=== PATIENT | female | born 1980 | race Caucasian/White ===

== ENCOUNTER → 2016-06-23 | Outpatient (CLI) | payer BC, OTHER ==
[~2016-06-23] MED LIST: PRENTAB26 PO
[2016-06-23 19:11] LABS: PREG INTERNAL NEGATIVE QC NEG CLEAR BACKGROUND; PREG INTERNAL POSITIVE QC POS CONTROL LINE
== END | disposition home or self-care (01) ==
LOC: C.LAB 18:14
PROVIDERS: ATTEND Obstetrics & Gynecology
DX: N92.6 Irregular menstruation, unspecified (principal)

== ENCOUNTER → 2016-07-28 | Outpatient (CLI) | payer BC | END | disposition home or self-care (01) | LOC: C.LAB1850 12:27 | PROVIDERS: ATTEND Obstetrics & Gynecology | DX: O09.299 Supervision of pregnancy with other poor reproductive or obstetric history, unspecified trimester (principal); O09.00 Supervision of pregnancy with history of infertility, unspecified trimester; Z3A.00 Weeks of gestation of pregnancy not specified ==

== ENCOUNTER → 2016-08-22 | Outpatient (CLI) | payer BC ==
[2016-08-22 14:49] LABS: MANUAL MICROSCOPIC REQUIRED? NO; REVIEW REQ? NO; URINE APPEARANCE CLEAR (CLEAR); URINE BILIRUBIN NEG (NEG); URINE COLOR YELLOW; URINE NITRITE NEG (NEG); URINE PH 8.5 (4.5-7.5); URINE SPECIFIC GRAVITY 1.006 (1.000-1.030); UROBILINOGEN NEG (NEG)
== END | disposition home or self-care (01) ==
LOC: C.LABSPEC 13:53
PROVIDERS: ATTEND Obstetrics & Gynecology
DX: O09.519 Supervision of elderly primigravida, unspecified trimester (principal)

== ENCOUNTER → 2016-08-29 | Outpatient (CLI) | payer BC ==
[2016-09-01 11:23] LABS: CHLAMYDIA TRACH RNA*** NOT DETECTED (NOT DETECTED); GC (NEIS GONORRHOEAE)RNA** NOT DETECTED (NOT DETECTED)
== END | disposition home or self-care (01) ==
LOC: C.LABSPEC 15:25
PROVIDERS: ATTEND Obstetrics & Gynecology
DX: O09.519 Supervision of elderly primigravida, unspecified trimester (principal); Z3A.00 Weeks of gestation of pregnancy not specified

== ENCOUNTER → 2016-08-29 | Outpatient (CLI) | payer BC | END | disposition home or self-care (01) | LOC: C.PAPS 08:03 | PROVIDERS: ATTEND Obstetrics & Gynecology | DX: Z01.419 Encounter for gynecological examination (general) (routine) without abnormal findings (principal); O09.519 Supervision of elderly primigravida, unspecified trimester; Z3A.00 Weeks of gestation of pregnancy not specified ==

== ENCOUNTER → 2016-10-16 | Outpatient (CLI) | payer BC ==
[2016-10-16 19:58] LABS: GTGD 50 Grams
== END | disposition home or self-care (01) ==
LOC: C.LAB 17:27
PROVIDERS: ATTEND Obstetrics & Gynecology
DX: O09.512 Supervision of elderly primigravida, second trimester (principal)

== ENCOUNTER → 2016-11-24 | Outpatient (CLI) | payer BC ==
--- NOTE | 2016-11-24 15:42 | DIAGNOSTIC IMAGING REPORT ---
BILATERAL LOWER EXTREMITY VENOUS DOPPLER HISTORY: LEG SWELLING IN 2ND TRIMESTER COMPARISON STUDY: None. FINDINGS: There is normal compressibility, flow, and augmentation within the bilateral lower extremity deep venous systems. IMPRESSION: No DVT within the right or left lower extremity. Electronically signed by: Ken Yoder M.D. 11/24/2016 3:41 PM Dictated Date/Time: 11/24/2016 3:41 PM
== END | disposition home or self-care (01) ==
LOC: C.ULTR 15:10
PROVIDERS: ATTEND Student in an Organized Health Care Education/Training Program
DX: O12.02 Gestational edema, second trimester (principal)

== ENCOUNTER → 2017-01-09 | Outpatient (CLI) | payer BC ==
[2017-01-09 10:45] LABS: HEMATOCRIT 34.3 % (37-47)
[2017-01-09 11:28] LABS: MANUAL MICROSCOPIC REQUIRED? NO; REVIEW REQ? NO; URINE APPEARANCE CLEAR (CLEAR); URINE BILIRUBIN NEG (NEG); URINE COLOR YELLOW; URINE EPITHELIAL CELL AUTO >30 /lpf (0-5); URINE NITRITE NEG (NEG); URINE PH 8.5 (4.5-7.5); URINE SPECIFIC GRAVITY 1.013 (1.000-1.030); UROBILINOGEN NEG (NEG)
[2017-01-09 11:47] LABS: GTGD 50 Grams
== END | disposition home or self-care (01) ==
LOC: C.LAB1850 09:32
PROVIDERS: ATTEND Obstetrics & Gynecology
DX: O09.512 Supervision of elderly primigravida, second trimester (principal); Z3A.00 Weeks of gestation of pregnancy not specified

== ENCOUNTER → 2017-03-06 | Outpatient (CLI) | payer BC | END | disposition home or self-care (01) | LOC: C.LABSPEC 15:47 | PROVIDERS: ATTEND Obstetrics & Gynecology | DX: O09.513 Supervision of elderly primigravida, third trimester (principal) ==

== ENCOUNTER 2017-03-27 17:16 | Inpatient (IN) | payer BC ==
[~2017-03-27] VITALS: Ht 157.5 cm; Wt 82.7 kg
[2017-03-27 20:01] VITALS: BMI 33.3
[2017-03-27] MEDS ORDERED: LACTATED RINGER'S 1000ML 1,000 ML IV PRN (20:52)
[2017-03-27] MEDS ORDERED: LACTATED RINGER'S 1000ML 500 ML IV PRN (20:53)
[2017-03-27] MEDS ORDERED: OXYTOCIN 30 UNITS/500ML NSS IV PRN (21:00)
[2017-03-27 21:26] LABS: HEMATOCRIT 38.6 % (37-47); MEAN CELL VOLUME 94.6 fL (80-100); MEAN CORPUSCULAR HEMOGLOBIN 32.4 pg (25-34); MEAN CORPUSCULAR HGB CONC 34.2 g/dl (32-36); MEAN PLATELET VOLUME 11.1 fL (7.4-10.4); PLATELET COUNT 269 K/uL (130-400); RED BLOOD COUNT 4.08 M/uL (4.2-5.4); WHITE BLOOD COUNT 15.19 K/uL (4.8-10.8)
[2017-03-27] MEDS: LACTATED RINGER'S 1000ML 1,000 ML IV SCH (21:50)
[2017-03-27 22:24] VITALS: Ht 157.5 cm; Wt 82.7 kg
[2017-03-28] MEDS ORDERED: NURSING VERBAL MED ORDER ONE ×2 (00:30→02:45)
[2017-03-28] MEDS: RANITIDINE HCL 150 MG TAB PO SCH ×3 (00:50→19:18)
[2017-03-28] MEDS ORDERED: BUTORPHANOL TARTRATE 1 MG/ML VIAL ONE (03:06)
[2017-03-28] MEDS ORDERED: FENTANYL 2MCG/ML ROPIV 1.25MG/ML 100ML BAG EPI ONE (04:18)
[2017-03-28] MEDS ORDERED: EpHEDrine SULFATE INJ 50 MG/ML AMP ONE (04:18)
[2017-03-28] MEDS ORDERED: BUPIVACAINE 0.25% 30 ML VIAL ONE (04:18)
[2017-03-28] MEDS ORDERED: FENTANYL CITRATE INJ 50 MCG/1 ML 2 ML VIAL ONE (04:19)
[2017-03-28] MEDS: LACTATED RINGER'S 1000ML 1,000 ML IV SCH ×2 (04:30→08:45)
[2017-03-28] MEDS ORDERED: LACTATED RINGER'S 1000ML 500 ML IV PRN (05:52)
[2017-03-28] MEDS ORDERED: NALOXONE HCL INJ 1 MG in SODIUM CHLORIDE 0.9% 1000ML 1,000 ML IV PRN (05:52)
[2017-03-28] MEDS ORDERED: EpHEDrine SULFATE INJ 50 MG/ML AMP IV PRN (06:00)
[2017-03-28] MEDS ORDERED: NALBUPHINE HCL INJ 10 MG/ML AMP IV PRN (06:00)
[2017-03-28] MEDS ORDERED: PROMETHAZINE HCL INJ 6.25 MG in SODIUM CHLORIDE 0.9% 50ML 50 ML IV PRN (06:00)
[2017-03-28] MEDS ORDERED: FENTANYL 2MCG/ML ROPIV 1.25MG/ML 100ML BAG EPI PRN (06:00)
[2017-03-28] MEDS ORDERED: NALOXONE HCL INJ 0.4 MG/1 ML VIAL/CARP IV PRN (06:00)
[2017-03-28] MEDS ORDERED: DiphenhydrAMINE HCL 50 MG/ML VIAL IV PRN (06:00)
[2017-03-28] MEDS ORDERED: ONDANSETRON INJ 2 MG/ML 2 ML VIAL IV PRN (06:00)
[2017-03-28] MEDS ORDERED: HYDROCORTISONE ACETATE 25 MG SUPP PR PRN (15:30)
[2017-03-28] MEDS ORDERED: ACETAMINOPHEN/CODEINE 300/30MG TAB PO PRN ×2 (15:30)
[2017-03-28] MEDS ORDERED: SUPERCREAM 0.870 % 15GM JAR EXT PRN (15:30)
[2017-03-28] MEDS ORDERED: LANOLIN OINT EXT PRN ×2 (15:30)
[2017-03-28] MEDS ORDERED: ACETAMINOPHEN 325 MG TAB PO PRN (15:30)
[2017-03-28] MEDS ORDERED: OXYTOCIN 30 UNITS/500ML NSS IV PRN (15:30)
[2017-03-28] MEDS ORDERED: DIPHTHERIA/TETANUS/PERTUSSIS 0.5 ML SYR/VIAL IM. ONE (15:30)
[2017-03-28] MEDS ORDERED: OXYCODONE/ACETAMINOPHEN 5-325 TAB PO PRN (15:30)
[2017-03-28] MEDS ORDERED: BENZOCAINE 20% AER SPR 82.5 GM CAN EXT PRN (15:30)
--- NOTE | 2017-03-28 16:37 | Anesthesia Procedure Note ---
Anesthesia Epidural Removal Nt Date & Time Mar 28, 2017 at 16:36 Vital Signs Pain Intensity: 0.0 Notes Mental Status: alert / awake / arousable, participated in evaluation Nausea / Vomiting: adequately controlled Pain: adequately controlled Airway Patency, RR, SpO2: stable & adequate BP & HR: stable & adequate Hydration State: stable & adequate Neuraxial Anesthesia: was administered, sensory block is resolving Anesthetic Complications: no major complications apparent, pt satisfied with anesthetic care Epidural: removed without complications, with tip intact
--- NOTE | 2017-03-28 17:57 | DELIVERY SUMMARY ---
DATE OF OPERATION: 03/28/[address] Pinon at 8:30 a.m. The patient was approximately 8 cm, she reached fully dilated. She had an epidural, was strep negative and then had a heart rate category 1 tracing. After several hours of pushing, she delivered a baby in right occiput anterior position. There was a nuchal cord x3 and some thin meconium. I was unable to really see cord right away, so baby was delivered and then the cord was then tangled from the baby's neck. There was length in the cord to allow us. The baby was somewhat floppy at the start, so we clamped the cord and cut it and baby was attended to on the warmer. Cord gases obtained, cord blood obtained, cord collection done for cord donation as well. The patient had a second degree tear repair with 3-0 Vicryl. Placenta removed with gentle traction. IV Pitocin started. The estimated blood loss 300 mL. Sponge, needle and instrument counts correct. I attest to the content of the Intraoperative Record and any orders documented therein. Any exception s are noted below.
[2017-03-28 18:20] VITALS: BP 130/77; PULSE 113; TEMP 36.9
[2017-03-28] MEDS: IBUPROFEN 600 MG TAB PO PRN (18:43)
[2017-03-28 19:10] VITALS: BP 129/84; PULSE 105; TEMP 36.8
[2017-03-28] MEDS: DOCUSATE SODIUM 100 MG CAP PO SCH (19:18)
[2017-03-28 23:00] VITALS: BP 108/70; PULSE 82; TEMP 36.6
[2017-03-29 03:35] VITALS: BP 112/75; PULSE 88; TEMP 36.5
[2017-03-29 07:20] VITALS: BP 110/74; PULSE 90; TEMP 36.5
[2017-03-29 07:24] LABS: HEMATOCRIT 28.8 % (37-47)
[2017-03-29] MEDS: RANITIDINE HCL 150 MG TAB PO SCH ×2 (08:02→20:09)
[2017-03-29] MEDS: PRENATAL VITAMIN TAB PO SCH (08:02)
[2017-03-29] MEDS: DOCUSATE SODIUM 100 MG CAP PO SCH ×2 (08:02→20:09)
[2017-03-29] MEDS: IBUPROFEN 600 MG TAB PO PRN ×4 (08:03→20:12)
--- NOTE | 2017-03-29 08:57 | Progress Note ---
Subjective Mar 29, 2017. Subjective conversation w/ patient, physical exam, lab review Ambulation: ambulating normally Voiding: no voiding problems Diet Tolerance: Regular Diet Lochia: Moderate Feeding Type: Breast Feeding Objective Vital Signs Date Time Temp Pulse Resp B/P (MAP) Pulse Ox O2 Delivery O2 Flow Rate FiO2 03/29/17 08:15 Room Air 03/29/17 07:20 36.5 90 18 110/74 (86) Room Air 03/29/17 03:35 36.5 88 20 112/75 (87) Room Air 03/28/17 23:00 Room Air 03/28/17 23:00 36.6 82 20 108/70 (83) Room Air 03/28/17 19:10 36.8 105 20 129/84 (99) Room Air 03/28/17 19:10 Room Air 03/28/17 18:20 36.9 113 20 130/77 (94) Room Air Physical Exam General Appearance: WELL-APPEARING Respiratory/Chest: lungs clear Abdomen: non tender Fundus: Firm Extremities: non-tender Laboratory Results Last 24 Hours Test 03/29/17 06:51 Hemoglobin 9.4 g/dL Hematocrit 28.8 % Assessment and Plan Problem List Medical Problems: (1) Vaginal bleeding in Status: Acute Post- Day#: 1 Continue Routine Care: Discussed Fe
[2017-03-29 11:30] VITALS: BP 113/74; PULSE 81; TEMP 36.6; O2SAT 97
[2017-03-29 16:30] VITALS: BP 120/82; PULSE 88; TEMP 36.9; O2SAT 98
[2017-03-29] MEDS ORDERED: BISACODYL 5 MG TABEC PO SCH (20:00)
[2017-03-29 23:30] VITALS: BP 110/73; PULSE 89; TEMP 36.7
[2017-03-30] MEDS: IBUPROFEN 600 MG TAB PO PRN ×2 (04:07→07:59)
[2017-03-30 06:41] LABS: HEMATOCRIT 28.2 % (37-47); MEAN CELL VOLUME 95.6 fL (80-100); MEAN CORPUSCULAR HEMOGLOBIN 31.5 pg (25-34); PLATELET COUNT 190 K/uL (130-400); RED BLOOD COUNT 2.95 M/uL (4.2-5.4); WHITE BLOOD COUNT 19.03 K/uL (4.8-10.8)
[2017-03-30] MEDS ORDERED: BISACODYL 10 MG SUPP PR PRN (07:00)
--- NOTE | 2017-03-30 07:18 | Progress Note ---
Subjective Mar 30, 2017. Subjective conversation w/ patient (pt has questions about course of healing for stitches, care, and requests script for compression stockings.), conversation w/ family, physical exam, chart review, lab review Ambulation: ambulating normally Voiding: no voiding problems Passing Gas: Yes Diet Tolerance: Regular Diet Lochia: Moderate Feeding Type: Breast Feeding Pain: CONTROLLED Review of Systems Respiratory: No shortness of breath Abdomen: No vomiting Female : No dysuria Objective Vital Signs Date Time Temp Pulse Resp B/P (MAP) Pulse Ox O2 Delivery O2 Flow Rate FiO2 03/29/17 23:30 36.7 89 20 110/73 (85) Room Air 03/29/17 23:30 Room Air 03/29/17 16:30 36.9 88 20 120/82 (95) 98 Room Air 03/29/17 16:30 Room Air 03/29/17 11:30 36.6 81 18 113/74 (87) 97 Room Air 03/29/17 08:15 Room Air 03/29/17 07:20 36.5 90 18 110/74 (86) Room Air Physical Exam General Appearance: WELL-APPEARING, WD/WN, NO APPARENT DISTRESS Respiratory/Chest: lungs clear, normal breath sounds, no respiratory distress Cardiovascular: regular rate, rhythm, no gallop Abdomen: normal bowel sounds, soft Fundus: Firm, Non-Tender, Relation to Umbilicus (2 below U) Extremities: non-tender, normal inspection Laboratory Results Last 24 Hours Test 03/30/17 06:05 White Blood Count 19.03 K/uL Red Blood Count 2.95 M/uL Hemoglobin 9.3 g/dL Hematocrit 28.2 % Mean Corpuscular Volume 95.6 fL Mean Corpuscular Hemoglobin 31.5 pg Mean Corpuscular Hemoglobin Concent 33.0 g/dl RDW Standard Deviation 47.7 fL RDW Coefficient of Variation 13.7 % Platelet Count 190 K/uL Mean Platelet Volume 11.0 fL Assessment and Plan Post- Day#: 2 Continue Routine Care: 37 yof (now1) 03/28 1456 O-/GBS-/RI Hgb 13.2, 9.4, today pending Pt doing well clinically. Denies s/s anemia. Desires to go home today, counselled on dc instructions. Will send with script for stockings. MARCUS MENDOZA FMR PGY 1 Resident Physician Supervision Note: I interviewed and examined the patient. Discussed with Dr. Mendoza and agree with findings and plan as documented in the note. Any exceptions or clarifications are listed here: [None] Documented By: Jose Quevedo Resident Tracking Resident Involvement: Resident Care Provided Care Provided: OB Delivery
[2017-03-30] MEDS ORDERED: [UNRECOGNIZED DRUG - CODE] (07:19)
--- NOTE | 2017-03-30 07:20 | Discharge Instructions ---
Discharge Instructions Date of Service Mar 30, 2017. Admission Reason for Admission: Prolonged Monitoring, R/O Ruptured Membranes Discharge Discharge Diagnosis / Problem: Spontaneous Vaginal Delivery Discharge Goals Goal(s): Routine recovery after delivery Medications Continue Dispensed Medications: supercream, dermaplast, tucks, lansinoh Activity Recommendations Activity Limitations: per Instructions/Follow-up section . Instructions / Follow-Up Instructions / Follow-Up ACTIVITY RECOMMENDATIONS: * Gradual return to full activity over the next 2-3 weeks. * No lifting - nothing heavier than baby over the next 2-3 weeks. * Do not engage in vigorous exercise, sexual activity or sports until cleared by your physician. * Do not drive or operate any motorized equipment until cleared by your physician. * You may shower/bathe daily. MEDICATIONS: For discomfort or pain, you may use Acetaminophen (Tylenol), Ibuprofen (Advil), or Naproxen (Aleve) following the package directions. For constipation you may use Colace following the package directions. BREAST CARE: If you are not breast feeding: * Wear a supportive bra 24 hours a day for one to two weeks. * Avoid stimulating your breasts and nipples as much as possible during the first few weeks after delivery. * When taking a shower, have the warm water hit your back, not breasts. * When your breasts feel full, apply ice packs. Usually three to four times a day helps ease the discomfort. * Take a mild pain medication (Tylenol / Motrin) when you are uncomfortable. If breast feeding: * Use breast milk to lubricate nipples. Lansinoh cream may be used for sore nipples. You do not need to remove cream prior to breast feeding. If using a different brand of cream, check the label for directions regarding removal of cream prior to nursing. * Wear a supportive bra. * If having problems with breasts or breast feeding, call a erp consultant or your health care provider. EPISIOTOMY CARE: After delivery, if you have an episiotomy (stitches), the following steps will ease discomfort and aid healing. * For the first 24 hours after delivery, place ice packs next to your episiotomy to help reduce swelling. * After the first 24 hour-period, sitz baths, either portable or in the tub, are suggested. A shower with a shower arm sprayed over the episiotomy may be comforting. * Bebe care should be done after each voiding and bowel movement. Squirt warm water from a plastic bottle over the perineum (region of the body between the anus and urinary opening) and pat dry. * Use Dermoplast to ease discomfort. Shake container. [place] directly over the episiotomy. Place a Tucks on a clean sanitary pad next to your episiotomy. SPECIAL CARE INSTRUCTIONS: When you are discharged from the hospital, it is important for you to follow the instructions listed below: * During the first week at home, you should be able to care for yourself and your baby. In addition, the usual light household activities are encouraged. * Limit your activities to the way you feel. Do not try to clean the house or move furniture. Be sensible. * If you actively engage in sports and have done so up until the time of your delivery, you may resume these activities as soon as you feel able. This may take up to one month or even longer. Use good judgment. * Continue to take your vitamins for at least six weeks after the of your baby. * Your diet need not be limited unless you were on a special diet before your delivery. Breast-feeding mothers need around 2500 calories per day and at least 64-80 ounces of fluid per day (8 to 10 glasses). * You should eat foods from the four major food groups. Crash diets or fad diets are to be avoided. Eating lean meats, fresh fruits and vegetables, low-fat dairy products, high fiber foods and a regular exercise program, will help you get back to your pre- weight without putting your health at risk. * Constipation is sometimes a problem after delivery. Take a mild laxative as needed. If breast feeding, Milk of Magnesia is acceptable to use. You may use a suppository or Fleets enema if no episiotomy. * A daily shower or tub bath is suggested. Be sure to thoroughly and gently dry the perineum. * A bloody vaginal discharge will usually continue until around four weeks post . A small amount of bleeding may continue for as long as six weeks. Vaginal discharge changes from the bright red bleeding after delivery to pink then brownish and finally yellowish-pink before becoming white and disappearing. * Bleeding may increase with activity. Your first period may come in 4-8 weeks. If you are breast feeding, your period may be delayed even longer. * [place] (sex) can begin whenever both you and your partner feel comfortable and do not have any form of genital infection. It is recommended that you wait at least six weeks for internal and external healing to occur. If you have questions, please talk to your health care practitioner. A condom should be used to prevent infection and . * Foreplay, gentle intercourse and lubrication is very important the first several times to prevent pain. A water-based lubricant such as K-Y jelly or Astroglide may be used. * If you have RH negative blood and your baby is RH positive, you will receive RHOGAM by injection prior to discharge. The nurse will give you a card to keep with you that has the date and place that you received RHOGAM after delivery. * During your care, you had a Rubella screen done to check for the presence of rubella antibodies in your blood. If your test was negative, you will receive a Rubella vaccine prior to discharge. This vaccine may cause a fever, soreness at the injection site and flu-like symptoms. If these symptoms persist, notify your health care practitioner. is not advised for one month after a Rubella vaccine. * Verbalizes understanding of car seat law as reviewed with patient nursing. * Car Seat hand-out given and reviewed with patient by nursing. * Shaken baby information reviewed with patient by nursing. Call you doctor if: * Heavy bleeding (saturating several pads an hour) or passing clots the size of your fist. * A fever >101 degrees F (38.3 degrees C) on two occasions four hours apart and /or chills. * Unusual pain in the pelvic or vaginal areas. * "Baby Blues" lasting longer than two weeks. If you have any questions or concerns, call your health care practitioner at . FOLLOW UP VISIT: * Please call the office at to schedule a 6 week examination. It is important you keep this appointment. It is important for you to make arrangements for either yearly or twice yearly check-ups thereafter. Current Hospital Diet Patient's current hospital diet: Regular OB Diet Discharge Diet Recommended Diet: Regular OB Diet Pending Studies Studies pending at discharge: no Medical Emergencies . Who to Call and When: Medical Emergencies: If at any time you feel your situation is an emergency, please call 911 immediately. . Non-Emergent Contact Non-Emergency issues call your: Primary Care Provider . . "Provider Documentation" section prepared by Pam Mendoza. . VTE Core Measure Inpt VTE Proph given/why not?: Treatment not indicated
[2017-03-30 07:56] VITALS: BP 110/67; PULSE 79; TEMP 36.7
[2017-03-30] MEDS: DOCUSATE SODIUM 100 MG CAP PO SCH (07:58)
[2017-03-30] MEDS: PRENATAL VITAMIN TAB PO SCH (07:58)
[2017-03-30] MEDS: RANITIDINE HCL 150 MG TAB PO SCH (07:58)
[2017-03-30 11:30] VITALS: BP_DIAS 67; PULSE 79; TEMP 36.7
== END 2017-03-30 13:10 | disposition home or self-care (01) | DRG 775 ==
LOC: C.LD 17:16 → C.OPB 17:16 → C.LD 20:53 → C.OPB 20:53 → C.OBG 03-28 18:27
PROVIDERS: ADMIT Obstetrics & Gynecology; ATTEND Obstetrics & Gynecology
PROC: 3E033VJ Introduction of Other Hormone into Peripheral Vein, Percutaneous Approach (ICD-10-PCS; 2017-03-27)
PROC: 10E0XZZ Delivery of Products of Conception, External Approach (ICD-10-PCS; principal; 2017-03-28)
PROC: 0KQM0ZZ Repair Perineum Muscle, Open Approach (ICD-10-PCS; principal; 2017-03-28)
DX: O76 Abnormality in fetal heart rate and rhythm complicating labor and delivery (principal); O70.1 Second degree perineal laceration during delivery; O69.1XX0 Labor and delivery complicated by cord around neck, with compression, not applicable or unspecified; O28.8 Other abnormal findings on antenatal screening of mother; O77.0 Labor and delivery complicated by meconium in amniotic fluid; Z3A.40 40 weeks gestation of pregnancy; Z37.0 Single live birth

== ENCOUNTER → 2017-05-19 | Outpatient (CLI) | payer OTHER ==
[~2017-05-19] MED LIST changes: +[UNRECOGNIZED DRUG - CODE]
--- NOTE | 2017-05-19 13:51 | DIAGNOSTIC IMAGING REPORT ---
SACRUM COCCYX MIN 2 VIEWS CLINICAL HISTORY: 37 years-old Female presenting with M53.3 Coccyx [id number]. TECHNIQUE: 3 views of the sacrum and coccyx were obtained. COMPARISON: None. FINDINGS: Sacroiliac joints are symmetric. No evidence of erosions, ankylosis, or joint space abnormality. No degenerative change. Sacrum demonstrates intact arcuate lines. Radiolucency on lateral view at the level of S3-4 may be artifactual as no abnormality is evident on frontal view to suggest fracture. No abnormal angulation or displacement of the coccyx. Normal appearing lower lumbar spine. Grossly normal appearing hip joints and the joints portion of the bony pelvis. Pubic symphysis congruent. Large stool burden in the right colon. IMPRESSION: 1. No convincing evidence of coccygeal fracture or dislocation. 2. Suspected artifactual radiolucency at the level of S3-4 as no correlation is evident on frontal view. Correlate for point tenderness. Electronically signed by: Jeff Ferrari M.D. 05/19/2017 1:50 PM Dictated Date/Time: 05/19/2017 1:47 PM
[2017-05-19 14:38] LABS: HEMOGLOBIN 13.2 g/dL (12.0-16.0); MEAN CELL VOLUME 93.7 fL (80-100); MEAN CORPUSCULAR HEMOGLOBIN 30.9 pg (25-34); MEAN PLATELET VOLUME 10.6 fL (7.4-10.4); PLATELET COUNT 404 K/uL (130-400); RED CELL DISTRIBUTION WIDTH CV 12.9 % (11.5-14.5); RED CELL DISTRIBUTION WIDTH SD 43.8 fL (36.4-46.3); WHITE BLOOD COUNT 8.03 K/uL (4.8-10.8)
[2017-05-19 15:05] LABS: BLOOD UREA NITROGEN 13 mg/dl (7-18); CALCIUM 9.6 mg/dl (8.5-10.1); CARBON DIOXIDE 29 mmol/L (21-32); CREATININE 0.68 mg/dl (0.60-1.20); GLUCOSE 87 mg/dl (70-99); SODIUM 137 mmol/L (136-145)
== END | disposition home or self-care (01) ==
LOC: C.RAD1850 12:59
PROVIDERS: ATTEND Internal Medicine
DX: M53.3 Sacrococcygeal disorders, not elsewhere classified (principal); G43.009 Migraine without aura, not intractable, without status migrainosus